=== PATIENT | male | born 1995 | race Caucasian/White ===

== ENCOUNTER 2019-05-01 10:31 | Emergency (ER) | payer OTHER ==
[~2019-05-01] VITALS: Ht 172.7 cm; Wt 74.8 kg
[~2019-05-01 10:31] MED LIST: VICODIN
[2019-05-01 11:05] VITALS: BP_SYST 115
--- NOTE | 2019-05-01 14:30 | NUR ---
Patient to H1 to gown for evaluation. Side rail up
--- NOTE | 2019-05-01 14:38 | NUR ---
ER at bedside examining patient.
--- NOTE | 2019-05-01 14:40 | NUR ---
pt arrives from home w/ c/o right shoulder pain 08/06. pt has no other c/o at the moment. Will continue to monitor
--- NOTE | 2019-05-01 15:00 | NUR ---
sling applied to the right shoulder pt tolerated well,
--- NOTE | 2019-05-01 15:06 | NUR ---
Patient given written and verbal discharge instructions and verbalizes understanding. ER MD discussed with patient the results and treatment provided. Patient in stable condition. ID arm band removed. Rx of Naprosyn given. Patient educated on pain management and to follow up with PMD. Pain Scale 3/10. Opportunity for questions provided and answered. Medication side effect fact sheet provided.
[2019-05-01 15:10] VITALS: BP_SYST 115
== END 2019-05-01 15:10 | disposition home or self-care (01) ==
LOC: SED 10:31
DX: S60.221A Contusion of right hand, initial encounter (principal); S49.82XA Other specified injuries of left shoulder and upper arm, initial encounter; F41.9 Anxiety disorder, unspecified; F17.210 Nicotine dependence, cigarettes, uncomplicated; X50.0XXA Overexertion from strenuous movement or load, initial encounter; Y93.89 Activity, other specified; Y92.39 Other specified sports and athletic area as the place of occurrence of the external cause; Y99.8 Other external cause status
CPT/HCPCS: 73030; 99283

== ENCOUNTER 2021-05-23 09:15 | Emergency (ER) | payer OTHER ==
[~2021-05-23] VITALS: Ht 172.7 cm; Wt 68.0 kg
[2021-05-23 09:25] VITALS: BP_SYST 112
--- NOTE | 2021-05-23 09:30 | NUR ---
Patient to ER bed H1 to gown for evaluation. Side rails up. Report given to PAL ERVIN.
--- NOTE | 2021-05-23 09:31 | NUR ---
PT COMES TO ER AFTER SUSTAINING AN INJURY TO LEFT INDEX FINGER AFTER OPENING A BOX WITH CUTTER AND STRIPPED THRU AND CUT FINGER TODAY 10 MIN [employer]. BLEEDING CONTROLLED. PT IS IN THE EVS DEPT HERE IN [facility]. PAPERWORK PROVIDED TO FILL OUT FOR REPORT. DR CASTELLON IN THE CASE.
[2021-05-23] MEDS ORDERED: DIPH-TET-PERTUS Vaccine 0.5 ML VIAL (ADACEL) I.M. ONE (09:45)
[2021-05-23] MEDS ORDERED: LIDOCAINE 1% 10 MG/ML, 20 ML MDV SUBCUT ONE (09:45)
--- NOTE | 2021-05-23 09:50 | NUR ---
DR NARANJO AT BEDSIDE FOR LAC REPAIR, LIDOCAINE AT BEDSIDE.
[2021-05-23] MEDS ORDERED: BACITRACIN 1 GM OINT TP ONE (10:19)
--- NOTE | 2021-05-23 10:31 | NUR ---
Patient given written and verbal discharge instructions and verbalizes understanding. ER MD discussed with patient the results and treatment provided. Patient in stable condition. ID arm band removed. Patient educated on pain management and to follow up with PMD. Pain Scale . Opportunity for questions provided and answered. Medication side effect fact sheet provided.
[2021-05-23 10:35] VITALS: BP_SYST 112
== END 2021-05-23 10:31 | disposition home or self-care (01) ==
LOC: SED 09:15
DX: S61.211A Laceration without foreign body of left index finger without damage to nail, initial encounter (principal); W45.8XXA Other foreign body or object entering through skin, initial encounter; Y93.89 Activity, other specified; Y92.89 Other specified places as the place of occurrence of the external cause; Y99.8 Other external cause status
CPT/HCPCS: 12001; 90471; 90715; 99283; J2001

== ENCOUNTER 2021-05-27 04:20 | Emergency (ER) | payer OTHER ==
[~2021-05-27] VITALS: Ht 172.7 cm; Wt 68.0 kg
[2021-05-27 04:22] VITALS: BP_SYST 121
[2021-05-27] MEDS ORDERED: IBUP-1968 PO (04:23)
[2021-05-27] MEDS ORDERED: IBUPROFEN 800 MG TABLET PO ONE (04:30)
[2021-05-27] MEDS ORDERED: BACITRACIN 1 GM OINT TP ONE ×2 (04:30→04:33)
[2021-05-27 04:40] VITALS: BP_SYST 121
== END 2021-05-27 04:41 | disposition home or self-care (01) ==
LOC: SED 04:20
DX: Z48.00 Encounter for change or removal of nonsurgical wound dressing (principal); Z79.899 Other long term (current) drug therapy
CPT/HCPCS: 99282

== ENCOUNTER 2021-06-03 04:14 | Emergency (ER) | payer OTHER ==
[~2021-06-03] VITALS: Ht 172.7 cm; Wt 68.0 kg
[~2021-06-03 04:14] MED LIST changes: +IBUP-1968 PO
[2021-06-03 04:23] VITALS: BP_SYST 121
[2021-06-03] MEDS ORDERED: BACITRACIN/POLYMYXIN B SULFATE 30 GM TOPICAL OINT. TP ONE (05:15)
[2021-06-03] MEDS ORDERED: BACITRACIN 1 GM OINT TP ONE (05:20)
[2021-06-03 05:47] VITALS: BP_SYST 121
== END 2021-06-03 05:47 | disposition home or self-care (01) ==
LOC: SED 04:14
DX: S61.211D Laceration without foreign body of left index finger without damage to nail, subsequent encounter (principal); F41.9 Anxiety disorder, unspecified; Z79.899 Other long term (current) drug therapy; Z48.02 Encounter for removal of sutures; X58.XXXD Exposure to other specified factors, subsequent encounter
CPT/HCPCS: 99282

== ENCOUNTER 2023-03-15 10:42 | Emergency (ER) | payer OTHER ==
[~2023-03-15] VITALS: Ht 170.2 cm; Wt 71.7 kg
[2023-03-15 10:53] VITALS: BP_SYST 108; PULSE 117; RESP 19; TEMP 98.9; O2SAT 95
[2023-03-15] MEDS ORDERED: NACL 0.9% 1,000 ML IV ONE (11:00)
[2023-03-15] MEDS ORDERED: KETOROLAC TROMETHAMINE 60 MG/2 ML VIAL IM ONE (11:30)
[2023-03-15 11:53] LABS: COVID19 ANTIGEN SOFIA FIA NEGATIVE (NEGATIVE)
[2023-03-15 12:11] LABS: INFLUENZA TYPE A Negative (NEGATIVE); INFLUENZA TYPE B NEGATIVE (NEGATIVE)
[2023-03-15] MEDS ORDERED: GUAI100S14 PO (12:49)
[2023-03-15] MEDS ORDERED: IBUP-1969 PO (12:49)
[2023-03-15] MEDS ORDERED: OSEL75CA PO (12:49)
[2023-03-15 13:01] VITALS: PULSE 91; RESP 18; O2SAT 99
== END 2023-03-15 13:03 | disposition home or self-care (01) ==
LOC: SED 10:42
DX: B34.9 Viral infection, unspecified (principal); M79.10 Myalgia, unspecified site; R05.9 Cough, unspecified; R68.83 Chills (without fever); Z79.899 Other long term (current) drug therapy; Z20.822 Contact with and (suspected) exposure to COVID-19
CPT/HCPCS: 99284; 71045; 87426; 36415; 96372; 87804 ×2; J1885